=== PATIENT | female | born 1975 | race Caucasian/White ===

== ENCOUNTER 2019-10-03 06:42 | Observation (INO) ==
--- NOTE | 2019-09-03 11:49 | PAT Medication Instructions ---
Medication Instructions Date of Service September 03, 2019 Home Medications Medication Instructions Recorded Carlo Lerma #1 ea 07/14/19 furosemide [Lasix] 20 - 40 mg PO BID ibuprofen [Advil] 200 mg PO Q6H PRN meloxicam 15 mg PO QAM ASK your surgeon for instructions ibuprofen [Advil] 200 mg PO Q6H PRN meloxicam 15 mg PO QAM DO NOT take the morning of surgery furosemide [Lasix] 20 - 40 mg PO BID Take evening before surgery furosemide [Lasix] 20 - 40 mg PO BID Other Notes If you have any questions please call us at [phone] or [phone] or [phone] or [phone]
--- NOTE | 2019-09-04 10:41 | Anesthesiology Consultation ---
Date of Service September 04, 2019 Assessment & Plan (1) Encounter for pre-operative examination: Per PAT assessment on 09/03: Travel screen negative. No known COVID-19 positive contacts. No current COVID-19 related symptoms. Patient had COVID testing 07/2019 which was negative (done for evaluation of cold symptoms which have since resolved). Surgeon arranging preop COVID testing. Awaiting results. - Check test AM DOS Chart Review Chart Review: Acceptable Risk for Surgery and Patient seen in Pre Admission Testing Teaching & Discussion Pre-Anesthesia Teaching/Discussion Notes: Instructed NPO after midnight before s urgery,except medications with 15 cc of water. Medication instructions provided according to the PAT guidelines. History Surgery Operation Date: 10/03/19 10:40 Proposed Procedures p Left Total Knee Arthroplasty - Cam Dumont MD Height/Weight Height: 5 ft 4 in Weight: 112.6 kg Allergies Allergy/AdvReac Type Severity Reaction Status Date / Time No Known Allergies Allergy Verified 09/03/19 08:34 Medications Home Medications Medication Instructions Recorded Confirmed Last Taken Wheeled Walker #1 ea 07/14/19 07/14/19 Unknown furosemide [Lasix] 20 - 40 mg PO BID 09/03/19 09/03/19 Unknown ibuprofen [Advil] 200 mg PO Q6H PRN 09/03/19 09/03/19 Unknown meloxicam 15 mg PO QAM 09/03/19 09/03/19 Unknown Past Medical History Medical History Iron deficiency anemia remote hx of iron infusions (felt chronic r/t hx of gastric bypass) Morbid obesity Osteoarthritis Exercise / Class Metabolic Activity II 4-5 Yardwork/Stairs/Walk up hill Past Family History Family History Grandmother (Paternal) Diabetes Other No family history of adverse response to anesthesia Past Surgical History Surgical History History of section x2 History of gastric bypass Past Anesthesia History No Family Hx of Anesthesia Complications and Other (dyspea with most recent c/s spinal (16 years ago), no issues with initial c/s or gastric bypass surgery) History of PONV No Hx of PONV and No Hx of Motion Sickness Social History Smoking Status: Never smoker Do You Dip or Chew Tobacco: No Hx Alcohol Use: Yes alcohol intake frequency: holidays/special occasions only Hx Substance Use: No substance use type: does not use Review of Systems Patient denies chest pain, shortness of breath, dyspnea on exertion, fever, chills, cough, wheezing, palpitations. Physical Exam Vital Signs VITALS BP 110/79 P 67 TEMP 98.0 SP02 97%RA RESP 18 PHYSICAL Full neck and c-spine range of motion. Full TMJ range of motion. TMD 2.5 finger breaths Mallampati Score 2 Dentition: missing molars Lungs: clear throughout to auscultation Cardiac: regular rate and rhythm, no murmurs noted Spine: normal Carotid arteries: negative bruit Extremities: no edema Testing Laboratory Results 09/04/19 11:25 09/04/19 11:25 PT 10.6 Seconds (9.0-12.0) 09/04/19 11:25 INR 1.0 (0.9-1.1) 09/04/19 11:25 APTT 27.9 Seconds (21.0-31.0) 09/04/19 11:25 Blood Type O Negative 09/04/19 11:25 Antibody Screen NEGATIVE 09/04/19 11:25 Electrocardiogram Date: 09/04/19 NSR at 60bpm. unconfirmed report Chest X-Ray Date: 09/04/19 Findings: + NAD
--- NOTE | 2019-09-04 11:51 | XRay Report ---
XR chest Pre-admission PA/Lat HISTORY: Preop. . COMPARISON: None. FINDINGS: The lungs are clear. Cardiac silhouette is normal in size. No pleural effusions. No pneumot horax. IMPRESSION: No acute process. ACT 112: Negative or not required by law. Electronically signed by: Riaz Fregoso M.D. 09/04/2019 11:50 AM
[2019-09-04 12:28] LABS: Basophils # (auto) 0.03 K/uL (0-0.2); Basophils % (auto) 0.5 %; Eosinophils # (auto) 0.08 K/uL (0-0.5); Eosinophils % (auto) 1.4 %; Hematocrit (blood only) 37.4 % (37-47); Hemoglobin 12.1 g/dL (12.0-16.0); Lymphocytes # (auto) 1.24 K/uL (1.2-3.4); Lymphocytes % (auto) 21.4 %; Mean Corpuscular Hemoglobin 29.9 pg (25-34); Mean Corpuscular Hgb Conc 32.4 g/dL (32-36); Mean Corpuscular Volume 92.3 fL (80-100); Mean Platelet Volume 12.5 fL (7.4-10.4); Monocytes # (auto) 0.28 K/uL (0.11-0.59); Monocytes % (auto) 4.8 %; Neutrophils # (auto) 4.17 K/uL (1.4-6.5); Neutrophils % (auto) 71.9 %; Platelet Count 231 K/uL (130-400); RDW Coefficient of Variation 13.6 % (11.5-14.5); Red Blood Count 4.05 M/uL (4.2-5.4)
[2019-09-04 12:38] LABS: Partial Thromboplastin Time 27.9 Seconds (21.0-31.0); Prothrombin Time 10.6 Seconds (9.0-12.0)
[2019-09-04 12:43] LABS: Blood Urea Nitrogen 11 mg/dl (7-18); C Reactive Protein < 0.29 mg/dl (0-0.29); Calcium 8.8 mg/dl (8.5-10.1); Carbon Dioxide 29 mmol/L (21-32); Chloride 103 mmol/L (98-107); Creatinine Clr Calc Pharmacy 146.4 ml/min; Est GFR (African American) 127.4; Est GFR (Non-African American) 109.9; Glucose 85 mg/dl (70-99); Potassium 4.3 mmol/L (3.5-5.1); Sodium 137 mmol/L (136-145)
--- NOTE | 2019-09-04 23:13 | Electrocardiogram Report ---
Test Reason : Blood Pressure : / mmHG Vent. Rate : 060 BPM Atrial Rate : 060 BPM P-R Int : 192 ms QRS Dur : 088 ms QT Int : 416 ms P-R-T Axes : 045 050 028 degrees QTc Int : 416 ms Normal sinus rhythm Normal ECG No previous ECGs available Confirmed by Jakub Rebolledo ([id number]) on 09/04/2019 11:13:06 PM Referred By: Cam Dumont Confirmed By:Jakub Rebolledo
--- NOTE | 2019-09-27 10:25 | History and Physical Report ---
DATE OF ADMISSION: 10/03/2019 CHIEF COMPLAINT: Bilateral knee pain and discomfort, left side greater than right. HISTORY OF PRESENT ILLNESS: The patient is a 44-year-old female who is referred by my partner, Dr. Pacheco, for surgical treatment of her left knee. She has got about 2-3 year history of increasing bilateral knee pain and discomfort, left side worse than the right. This had been unresponsive to conservative care. She did undergo gastric bypass surgery several years ago in [place], has lost about 160 pounds. She has gained about 20 pounds back due to limited mobility and difficulty getting around. She just cannot stay active. She has been through extensive conservative treatment which have caused side effects. She cannot take NSAIDs due to her gastric bypass. She has had shots in the knee which provide temporary relief only. Her walking tolerance is limited. It is global pain. She has pain going up and down steps. She would like to have her left knee fixed. PAST MEDICAL HISTORY: Past medical history is significant for: 1. Obesity, status post gastric bypass surgery with 160-pound weight loss and currently on Weight Watchers. 2. Chronic anemia. PAST SURGICAL HISTORY: Previous surgeries include: 1. x2. 2. Gastric bypass surgery several years ago in [place]. ALLERGIES: None. CURRENT MEDICINES: 1. Tylenol. 2. Diclofenac twice a day. 3. Ibuprofen. 4. Meloxicam. 5. Unspecified med SOCIAL HISTORY: A 44-year-old white female. Recently . Does not smoke. No significant alcohol intake. FAMILY HISTORY: Noncontributory. REVIEW OF SYSTEMS: Significant for obesity. Denies any current chest pain or shortness of breath. No history of DVT or PE. No known bleeding problems. PHYSICAL EXAMINATION: GENERAL: Physical examination shows a pleasant, middle-aged female. Looks to be in reasonably good health. HEENT: Benign. NECK: Supple, no lymphadenopathy. LUNGS: Clear to auscultation. HEART: Has a regular rate and rhythm. ABDOMEN: Soft, nontender, nondistended. EXTREMITIES: Grossly neurovascularly intact except as follows. Examination of her knees reveal the patient ambulates independently. She does have a large soft tissue envelope on both sides. Examination of left knee reveals fairly neutral alignment. She is tender diffusely around her knee. Range of motion about 5-10 degrees short of full extension, about 110 degrees of flexion. She does appear quite uncomfortable with knee motion. No pain with hip motion. Examination of the right knee reveals a large soft tissue envelope. Neutral alignment. Range of motion 5-110. No instability. X-RAYS: X-rays of both knees were reviewed and show advanced bilateral knee DJD. Her left knee is worse than the right. She has got complete loss of the medial joint space. She has subchondral sclerosis and little bit of tibiofemoral subluxation. ASSESSMENT: A 44-year-old white female with a history of significant morbid obesity status post gastric bypass surgery with persistent knee pain and discomfort and degenerative joint disease, left side worse than the right. She has failed conservative treatment and would like to have her left knee replaced. PLAN: We talked about treatment options. She would really like to proceed with knee replacement. I did tell at her young age that she is at risk for need for revision. She understands this. She is strongly desiring to proceed. We will plan on knee replacement. We will likely put a stem in her tibia due to her large BMI and likely poor bone quality due to gastric bypass surgery. The risks and benefits of this procedure were explained to the patient include but not limited to DVT, PE, , infection, neurological injury, vascular injury, bleeding problem, pain, limited range of motion, stiffness, failure to relieve her symptoms, incomplete relief of symptoms, need for further surgery in future, fracture, leg length inequality, nerve palsy and need for revision surgery. The patient understands and desires to proceed. Informed consent was obtained. ERASMO
[~2019-10-03 06:42] MED LIST: ACETAMINOPHEN 500 MG TAB PO SCH; BUPIVACAINE 0.5 % 5 MG/1 ML PF 10ML VIAL ONE; BUPIVACAINE LIPOSOME/PF 266 MG, BUPIVACAINE/EPINEPHRINE 50 ML, SODIUM CHLORIDE 0.9% 30 ... INFIL SCH; CEFAZOLIN 2000MG 2,000 MG/15 ML SYR IV SCH; FAMOTIDINE 20 MG TAB PO SCH; GABAPENTIN 900 MG DOSE PO SCH; LR 500ML BOLUS, THEN 15ML/HR IV SCH; LR 60ML/HR IV SCH; METOCLOPRAMIDE HCL 10 MG TABLET PO SCH; TRANEXAMIC ACID 1,000 MG **IV Intra-op IV SCH
--- NOTE | 2019-10-03 06:46 | History & Physical Bridge Note ---
Date of Service October 03, 2019 History & Physical Bridge Note I have examined the patient, reviewed the History & Physical and in the interval since the performance of the History & Physical I have noted the following changes of clinical significance: no changes noted
[2019-10-03] MEDS ORDERED: fentaNYL citrate 100 MCG/2 ML VIAL ONE (07:02)
[2019-10-03] MEDS ORDERED: MIDAZOLAM HCL 1 MG/ML 2ML VIAL ONE (07:02)
[2019-10-03] MEDS ORDERED: ONDANSETRON INJ 2 MG/ML 2 ML VIAL IV PRN ×2 (07:55→11:42)
[2019-10-03] MEDS ORDERED: ATROPINE SULFATE 0.1 MG/ML 10ML SYR IV PRN (07:55)
[2019-10-03] MEDS ORDERED: fentaNYL citrate 100 MCG/2 ML VIAL IV PRN (08:00)
[2019-10-03] MEDS ORDERED: ePHEDrine sulfate 50 MG/ML AMP IV PRN (08:00)
[2019-10-03] MEDS ORDERED: BUPIVACAINE/EPINEPHRINE 0.25% 1:200,000 30 ML VIAL ONE (08:13)
[2019-10-03] MEDS ORDERED: SODIUM CHLORIDE 0.9% PF 50 ML VIAL ONE (08:14)
[2019-10-03] MEDS ORDERED: BUPIVACAINE LIPOSOME 1.3% 266 MG/20 ML VIAL ONE (08:14)
[2019-10-03] MEDS ORDERED: BACITRACIN INJ 50,000 UNIT VIAL ONE (08:14)
[2019-10-03] MEDS ORDERED: PROPOFOL IV EMULSION 10 MG/ML 20 ML VIAL IV ONE ×3 (08:30→09:19)
[2019-10-03] MEDS ORDERED: ePHEDrine sulfate 50 MG/ML SYR ONE (08:48)
[2019-10-03] MEDS ORDERED: GLYCOPYRROLATE 0.2 MG/ML VIAL ONE (09:04)
--- NOTE | 2019-10-03 10:32 | Post Operative Brief Note ---
PG Immediate Post Op with CF Date of Surgery October 03, 2019 Pre & Post Diagnosis Operation Date: 10/03/19 08:50 Pre-Op Diagnosis: Left Knee Advanced Degenerative Joint Disease Post-Op Diagnosis: Left Knee Advanced Degenerative Joint Disease I identified the patient and participated in the time-out.: Yes Procedure Operation Date: 10/03/19 08:50 Actual Procedures p Left Total Knee Arthroplasty(Left) - Cam Dumont MD Surgeon Cam Dumont MD Field Engineer Nick, PAC Estimated Blood Loss 50 Findings Consistent with Post-Op Diagnosis Fluids 1100 cc Specimens Specimen Description: A. Left Knee Bone and Tissue Drains Gil Catheter Anesthesia Type Spinal MAC Complications none Disposition Accompanied Patient To Recovery: Yes Disposition: Recovery Room
--- NOTE | 2019-10-03 11:18 | XRay Report ---
XR knee LT 1 or 2V routine CLINICAL HISTORY: Surgical Post Op COMPARISON: None. DISCUSSION: There are postsurgical changes of a total left knee arthroplasty and patellar resurfacing with a longstem tibial prosthesis. There is gas present within the soft tissues consistent with rece nt surgery. The femoral tibial components appear well seated. Overlying skin maday are evident. IMPRESSION: Postsurgical changes of a total left knee arthroplasty. ACT 112: Negative or not required by law. Electronically signed by: Vicente Zurita M.D. 10/03/2019 11:16 AM
[2019-10-03] MEDS ORDERED: ALUMINUM/MAGNESIUM SUSP 30 ML UDC PO PRN (11:42)
[2019-10-03] MEDS ORDERED: NALOXONE HCL 0.4 MG/1 ML VIAL/CARP IV PRN (11:42)
[2019-10-03] MEDS ORDERED: bisacodyL 10 MG SUPP PR PRN (11:42)
[2019-10-03] MEDS ORDERED: MAGNESIUM HYDROXIDE SUSP 30 ML UDC PO PRN (11:42)
[2019-10-03] MEDS ORDERED: METOCLOPRAMIDE HCL INJ 5 MG/ML 2 ML VIAL IV PRN (11:42)
[2019-10-03] MEDS: SODIUM CHLORIDE 0.9% 1000ML 1,000 ML IV SCH ×2 (12:02→18:30)
[2019-10-03] MEDS: KETOROLAC 30 MG/ML VIAL IV SCH ×3 (13:13→23:20)
[2019-10-03] MEDS: ACETAMINOPHEN 500 MG TAB PO SCH ×2 (13:13→20:32)
--- NOTE | 2019-10-03 13:35 | Anesthesiology Progress Note ---
Date of Service October 03, 2019 Anesthesia Post Procedure Vital Signs Vital Signs: Temp Pulse Pulse Pulse Resp BP Pulse Ox 10/03/19 12:59 97.7 F 87 16 125/80 100 10/03/19 12:14 97.3 F L 77 17 112/70 98 10/03/19 11:40 97.9 F 79 16 105/63 97 10/03/19 11:25 76 12 101/62 93 10/03/19 11:15 97.3 F L 84 15 112/61 94 10/03/19 11:05 79 14 101/75 95 10/03/19 10:55 76 17 98/64 L 97 10/03/19 10:45 78 23 96/62 L 94 10/03/19 10:37 97.0 F L 78 23 80/52 L 99 10/03/19 07:59 66 16 110/54 L 99 10/03/19 07:11 98.1 F 73 18 144/62 H 98 Pain Intensity Left Knee: Pain Intensity: 6 Transfer of Care Handoff Completed per policy Notes Mental Status: alert / awake / arousable and participated in evaluation Patient Amnestic to Procedure: Yes Nausea / Vomiting: adequately controlled Pain: adequately controlled Airway Patency, RR, SpO2: stable & adequate BP & HR: stable & adequate Hydration State: stable & adequate Neuraxial Anesthesia: was administered and sensory block is resolving Anesthetic Complications: no major complications apparent and Pt Satisfied with anesthetic care
[2019-10-03] MEDS: OXYCODONE HCL IR 5 MG TAB (IMMEDIATE RELEASE) PO PRN (15:12)
[2019-10-03] MEDS ORDERED: TRANEXAMIC ACID / 0.7% NACL 1,000 MG/100 ML BAG IV SCH (16:37)
[2019-10-03] MEDS: Scopolamine CHECK PATCH PLACEMENT SCH ×2 (16:52→23:20)
[2019-10-03] MEDS: ASCORBIC ACID 500 MG TAB PO SCH (17:36)
[2019-10-03] MEDS: FERROUS GLUCONATE 324 MG TAB PO SCH (17:36)
[2019-10-03] MEDS: FUROSEMIDE 20 MG TAB PO SCH (17:37)
--- NOTE | 2019-10-03 17:41 | Operative Report ---
Post Operative Report Pre & Post Diagnosis Operation Date: 10/03/19 08:50 Pre-Op Diagnosis: Left Knee Advanced Degenerative Joint Disease Post-Op Diagnosis: Left Knee Advanced Degenerative Joint Disease I identified the patient and participated in the time-out.: Yes Procedure Operation Date: 10/03/19 08:50 Actual Procedures p Left Total Knee Arthroplasty(Left) - Cam Dumont MD Surgeon Cam Dumont MD [employer] Service Technician Nick, PAC Estimated Blood Loss 50 Findings Consistent with Post-Op Diagnosis Operative findings revealed advanced left knee DJD. She had extensive grade 4 changes medial compartment particularly of medial till plateau with wear of the plateau. A lot of eburnation. She had a large knee joint effusion. She had a varus deformity to her knee. Osteophytes medial compartment. Moderate patellofemoral disease and less severe lateral compartment. Fluids 1100 cc. Specimens Left knee sent for pathology. Drains None. Anesthesia Type Spinal MAC Complications none Disposition Accompanied Patient To Recovery: Yes Disposition: Recovery Room Indications Patient is a 44-year-old obese female is had a long history of bilateral knee pain discomfort left side greater than the right. She did undergo gastric bypass surgery several years ago and lost some weight but continued be limited by knee pain and discomfort. X-ray showed left knee DJD worse than the right. He failed all conservative measures. He was having difficulty maintaining any degree of active lifestyle. She elected proceed with a left total knee arthroplasty. She is fully aware at her young age that this may wear and the need revised in the future. Due to her obesity and history of gastric bypass surgery and relative osteopenia I elect to place a stem in the tibia to maximize ability and durability of her implants. Description of Procedure Operative implants consist of: 1. Biomet Vanguard size 65 left posterior stabilized femoral component 2. Biomet size 71 tibial tray with a 80 x 13 mm stem with a 2.5 mm offset and a small cruciate wing. 3. 10 mm Po stabilized polyethylene insert. 4. 31 x 8 all poly-patella. Patient was taken to the operating identified and placed on the operating table supine position protectors were properly padded. IV antibiotics arrived by anesthesia team. A spinal anesthetic and abductor canal block had provided holding area. Gil cath was placed in sterile fashion. A left thigh tournique t was then placed left lower extremity was then prepped and draped in usual sterile fashion. Left leg was elevated exsanguinated with use of an Esmarch interspace at 350 mmHg. Anterior approach left knee was then performed to longitudinal incision centered over the patella. Sharp dissection was gone through subcutaneous tissue down to level the extensor mechanism. A medial parapatellar arthrotomy incision was made. Some subperiosteal dissection was carried out medially. The fat pad was resected from each patella tendon. Lateral patellofemoral ligament release. The patella was subluxated laterally and the knee was flexed. The osteophytes were taken off distal femur. ACL and PCL were then released from distal femur the tibia subluxated anteriorly. I elected to place a tibial stem and therefore the tibial eminence was resected. I then reamed down the IM canal with a merchandiser applied followed sequentially and 1 mm reamers in with a 10 up to 13. Got excellent fit at 13. The intramedullary reamer was then used to placed the proximal tibial cutting guide to remove about a millimeter or 2 of bone from most efficient aspect medial till plateau. Proximal tibial cut was made. Tibia was sized to a size 71. It was prepared for a 2.5 mm offset stem with a small cruciate wing. Implant was assembled to fit quite nicely. I did have to ream up a little bit eventually in order to get the implant down. The implant was left in place. Attention then drawn the femur. The distal femur exam with a sharp drop with intramedullary canal was suction. Left 5 degree valgus cutting guide was placed but distal femoral cutting block was in place. Distal femoral cut was made to take an additional 3 mm of bone off distal femur. The femur was then sized to a size 65. The AP cutting block and parallel to the epicondylar axis which was 5 degrees of external rotation. Anterior cut, anterior chamfer, posterior cut, posterior chamfer cuts were made. Box cutting guide was placed in a just slight lateral box cut was made to the knee was flexed with the remnants of medial lateral menisci were excised. The osteophytes were taken off the posterior aspect of the femur. A trial femoral component was placed. Then trialed the knee and the 10 mm insert fit most appropriately. Attention drawn the patella. Patella was cleaned of all soft tissues. Patella thickness measured 21 mm in thickness was cut down to 13. Was sized to a size 31 patella. Locals were filled for 31 patella. Lateral osteophytes removed. Patella button was placed. Knee was taken through range of motion the patella tracked nicely with no thumbs test. Attention drawn to placing permanent components. All trial components removed. Bone plug was placed in the disc femur limit blood loss. L batch Palacos G cement was mixed. A Biomet Vanguard size 65 left posterior stabilized femoral component, size 71 tibial tray with a 88 x 13 mm offset stem and a small cruciate wing was placed followed by a 10 mm posterior box polyethylene insert, and a 31 x 8 all poly-patella. The knee was brought out in full extension until cement hardened. Final cement check was then performed. Pericapsular tissues were injected with a total of 100 cc of combination of 20 cc of Exparel, 30 cc of normal saline, 50 cc of quarter percent Marcaine with epinephrine. Patient received 1 g tranexamic acid. Then let down for final tourniquet time 75 minutes. Hemostasis assured use electrocautery. Extensor mechanism closed with combination 1 PDS suture #1 Vicryl suture in [id number] fashion. Extensor mechanism checked found to be intact and subcutaneous tissue then closed with 2 Dexon suture in a buried interrupted fashion skin was closed skin maday. Leg was then cleaned dried and sterile dressing of Xeroform, 4 x 4's, sterile cast padding Moe bandage applied. Patient then transferred to the recovery room in stable condition. Patient tolerated procedure well and there were no complications. Kiara Romero, my physician doctor assistant, was present for the entire procedure. His assistance was essential to proper positioning, prepping and draping, therefore exposure, performing the technical details of the operation, placement of the implants, closing the wound, and placement of the sterile bandage. I attest to the content of the Intraoperative Record and any orders documented therein. Any exceptions are noted below.
[2019-10-03] MEDS: TAPENTADOL HCL ER 50 MG TABCR PO SCH (20:28)
[2019-10-03] MEDS: CEFAZOLIN 2000MG 2,000 MG/15 ML SYR IV SCH (20:28)
[2019-10-03] MEDS: ASPIRIN 81 MG ECTAB PO SCH (20:29)
[2019-10-03] MEDS: SENNA 8.6 MG TAB PO SCH (20:29)
[2019-10-03] MEDS: DOCUSATE SODIUM 100 MG CAP PO SCH (20:31)
[2019-10-04] MEDS: OXYCODONE HCL IR 5 MG TAB (IMMEDIATE RELEASE) PO PRN ×4 (03:27→21:22)
[2019-10-04] MEDS: CEFAZOLIN 2000MG 2,000 MG/15 ML SYR IV SCH (03:30)
[2019-10-04] MEDS: KETOROLAC 30 MG/ML VIAL IV SCH ×4 (05:26→23:47)
[2019-10-04] MEDS: ACETAMINOPHEN 500 MG TAB PO SCH ×3 (05:28→21:24)
[2019-10-04 06:16] LABS: Hematocrit (blood only) 29.1 % (37-47); Hemoglobin 9.1 g/dL (12.0-16.0); Mean Corpuscular Hemoglobin 29.6 pg (25-34); Mean Corpuscular Hgb Conc 31.3 g/dL (32-36); Mean Corpuscular Volume 94.8 fL (80-100); Mean Platelet Volume 10.9 fL (7.4-10.4); Platelet Count 200 K/uL (130-400); RDW Coefficient of Variation 14.3 % (11.5-14.5); RDW Standard Deviation 49.7 fL (36.4-46.3); Red Blood Count 3.07 M/uL (4.2-5.4); White Blood Count 5.88 K/uL (4.8-10.8)
[2019-10-04 06:42] LABS: Calcium 8.1 mg/dl (8.5-10.1); Est GFR (Non-African American) 113.9; Potassium 3.9 mmol/L (3.5-5.1)
[2019-10-04] MEDS: ASCORBIC ACID 500 MG TAB PO SCH ×2 (08:00→17:21)
[2019-10-04] MEDS: FUROSEMIDE 20 MG TAB PO SCH ×2 (08:00→17:21)
[2019-10-04] MEDS: FERROUS GLUCONATE 324 MG TAB PO SCH ×2 (08:00→17:21)
[2019-10-04] MEDS: MULTIVITAMIN TAB PO SCH (08:00)
[2019-10-04] MEDS: ASPIRIN 81 MG ECTAB PO SCH ×2 (08:00→21:25)
[2019-10-04] MEDS: DOCUSATE SODIUM 100 MG CAP PO SCH ×2 (08:00→21:23)
[2019-10-04] MEDS: Scopolamine CHECK PATCH PLACEMENT SCH ×3 (08:07→21:40)
--- NOTE | 2019-10-04 08:46 | Progress Notes ---
DATE: 10/04/2019 SUBJECTIVE: A 44-year-old white female postop day 1 from a left knee replacement. She is doing okay. Having a moderate amount of knee pain. No other complaints. No chest pain or shortness of breath. Not feeling dizzy or lightheaded. OBJECTIVE: VITAL SIGNS: Temperature 37.1. Vital signs stable. GENERAL: Shows a pleasant, middle-aged female. She was walking from her bed to the bathroom when I visited her this morning. She is doing pretty well with a walker. EXTREMITIES: Examination of the left leg reveals the dressing to be clean, dry and intact. Leg is well aligned. She can dorsiflex and plantarflex her foot appropriately. She is neurologically intact. LABORATORY DATA: Hemoglobin is 9.1. Hematocrit is 29.1. Electrolytes are stable. ASSESSMENT: A 44-year-old white female postop day 1 from a left knee replacement, doing reasonably well. Having a moderate amount of pain, but nothing out of the ordinary. She is neurologically intact. She is anemic, but without symptoms. PLAN: 1. DVT prophylaxis including thigh-high TEDs, SCDs, and aspirin twice a day for the next 6 weeks. 2. PT/OT. She can weightbear as tolerated in the left lower extremity. 3. Pain control, doing okay with current pain regimen. 4. Anemia. Will continue iron supplementation. No need for blood consideration at this point as she is asymptomatic. 5. Disposition: She is planning to be discharged to home with some home health and her sons can assist in her care at home.
[2019-10-04] MEDS: TAPENTADOL HCL ER 50 MG TABCR PO SCH ×2 (08:57→21:23)
[2019-10-04] MEDS: HYDROmorphone INJ 0.5 MG/0.5 ML SYR IV PRN ×2 (10:48→16:17)
[2019-10-04] MEDS: SENNA 8.6 MG TAB PO SCH (21:24)
[2019-10-05] MEDS: KETOROLAC 30 MG/ML VIAL IV SCH (05:26)
[2019-10-05] MEDS: ACETAMINOPHEN 500 MG TAB PO SCH (05:27)
[2019-10-05] MEDS: OXYCODONE HCL IR 5 MG TAB (IMMEDIATE RELEASE) PO PRN (07:36)
[2019-10-05] MEDS: FERROUS GLUCONATE 324 MG TAB PO SCH (07:36)
[2019-10-05] MEDS: ASCORBIC ACID 500 MG TAB PO SCH (07:36)
[2019-10-05] MEDS: DOCUSATE SODIUM 100 MG CAP PO SCH (07:36)
[2019-10-05] MEDS: ASPIRIN 81 MG ECTAB PO SCH (07:37)
[2019-10-05] MEDS: FUROSEMIDE 20 MG TAB PO SCH (07:37)
[2019-10-05] MEDS: MULTIVITAMIN TAB PO SCH (07:37)
[2019-10-05] MEDS: TAPENTADOL HCL ER 50 MG TABCR PO SCH (07:39)
--- NOTE | 2019-10-05 08:38 | Progress Notes ---
DATE: 10/05/2019 SUBJECTIVE: A 44-year-old white female postop day 2 from a left knee replacement. She is doing okay. Pain is a little bit better this morning. Therapy went okay. No chest pain or shortness of breath. Not feeling dizzy or lightheaded. OBJECTIVE: VITAL SIGNS: Temperature 36.8. Vital signs stable. GENERAL: Shows a pleasant, middle-aged female. She is sitting up in bed, looks pretty comfortable. EXTREMITIES: Examination of the left leg reveals the leg to be well aligned. Dressing is clean, dry and intact. No significant drainage. Calf is soft and supple. She is neurologically intact. ASSESSMENT: A 44-year-old white female postop day 2 from left knee replacement, doing pretty well. Pain is controlled. PLAN: 1. DVT prophylaxis including thigh-high TEDs, SCDs, and aspirin twice a day. 2. PT/OT. Weight bear as tolerated. Left total knee protocol. 3. Pain control, doing pretty well with current pain regimen. 4. Disposition: Plan to discharge to home with some home health later today.
--- NOTE | 2019-10-10 07:45 | Discharge Summary ---
Date of Service October 10, 2019 Admission HPI Per Admitting Provider Documented in the H & P Admission Exam (Per Admitting) Constitutional Documented in the H & P Discharge Data Consultations 10/03/19 11:42 Consult Case Management - Discharge Planning Routine Procedures Performed Operation Date: 10/03/19 08:50 Actual Procedures p Left Total Knee Arthroplasty(Left) - Cam Dumont MD Hospital Course (1) Status post total left knee replacement: This patient is a 44 year old female admitted on 10/03/19 and underwent total knee arthroplasty. She tolerated the procedure well and there were no complications. Transferred to the PACU post op and later to the orthopedic floor for further care. She was given ancef for antibiotic prophylaxis. She was also given RAMESH stockings, SCDs, and aspirin for DVT prophylaxis. Hemoglobin, hematocrit, and vital signs were monitored during her hospital stay and remained stable. Did not require any blood transfusions. There were no complications during her hospital stay. By post op day #2 the patient was tolerating a regular diet, pain was reasonably controlled with oral pain medicine, and she was participating in physical therapy. On post op day #2 the patient was discharged home and set up with home health care. She was given printed discharge instructions including prescriptions for extra strength tylenol, aspirin, iron supplement and oxycodone. Continue physical therapy, weight bearing as tolerated. Continue RAMESH stockings. Follow up approximately 2 weeks post op or sooner if there are problems or concerns. Coding Level of Care Code None Diagnoses Status post total left knee replacement Z96.652
== END 2019-10-05 11:55 | disposition home health service (06) ==
LOC: ASU 06:42 → 3E 06:42